=== PATIENT | female | born 1960 ===

== ENCOUNTER → 2020-12-25 | Outpatient (CLI) | payer OTHER | LOC: LAB SHORT 07:29 | DX: D48.5 Neoplasm of uncertain behavior of skin (principal) | CPT/HCPCS: 88341; 88342 ==

== ENCOUNTER → 2020-12-25 | Outpatient (CLI) | payer SELFPAY | LOC: LAB SHORT 14:28 | DX: D48.5 Neoplasm of uncertain behavior of skin (principal) | CPT/HCPCS: 88312 ==